=== PATIENT | male | born 1945 | race Two or more races ===

== ENCOUNTER 2018-02-21 18:15 | Emergency (ER) | payer OTHER, MEDICAID ==
[2018-02-21 18:48] LABS: ADD MAN DIFF? NO
[2018-02-21 18:52] LABS: BASO # 0.1 x10^3/uL (0.0-0.2); BASO % 1 % (0-3); EOS # 0.2 x10^3/uL (0.0-0.7); EOS % 2 % (0-3); HEMATOCRIT 36.5 % (39.0-53.0); HEMOGLOBIN 12.4 g/dL (13.0-17.5); LYMPH # 1.7 x10^3/uL (1.0-4.8); LYMPH % 16 % (24-48); MEAN CORPUSCULAR HEMOGLOBIN 30 pg (25-35); MEAN CORPUSCULAR HGB CONC 34 g/dL (31-37); MEAN CORPUSCULAR VOLUME 87 fL (79-100); MONO # 1.1 x10^3/uL (0.0-1.1); MONO % 11 % (0-9); NEUT # 7.4 x10^3uL (1.8-7.7); NEUT % 71 % (31-73); PLATELET COUNT 241 x10^3/uL (140-400); RED CELL DISTRIBUTION WIDTH 13.7 % (11.5-14.5); WHITE BLOOD COUNT 10.4 x10^3/uL (4.0-11.0)
[2018-02-21 18:58] LABS: ANION GAP 6 (6-14); BLOOD UREA NITROGEN 19 mg/dL (8-26); BUN/CREATININE RATIO 19 (6-20); CALCIUM 8.5 mg/dL (8.5-10.1); CARBON DIOXIDE 30 mmol/L (21-32); CHLORIDE 100 mmol/L (98-107); GFR 73.7; GLUCOSE 215 mg/dL (70-99); SODIUM 136 mmol/L (136-145)
[2018-02-21 18:59] LABS: C-REACTIVE PROTEIN 129.8 mg/L (0-3.3)
[2018-02-21 19:04] LABS: ALBUMIN/GLOBULIN RATIO 0.6 (1.0-1.7); ALK PHOS 107 U/L (46-116); ALT (SGPT) 15 U/L (16-63); AST (SGOT) 15 U/L (15-37); TOTAL BILIRUBIN 0.5 mg/dL (0.2-1.0); TOTAL PROTEIN 7.8 g/dL (6.4-8.2)
== END 2018-02-21 20:32 | disposition home or self-care (01) ==
LOC: ER 18:15
DX: E11.621 Type 2 diabetes mellitus with foot ulcer (principal); L97.511 Non-pressure chronic ulcer of other part of right foot limited to breakdown of skin
CPT/HCPCS: 36415; 73630; 80053; 85025; 86140; 87071; 87075; 87205; 99285-25

== ENCOUNTER → 2018-03-03 | Outpatient (CLI) | payer OTHER, MEDICAID | END | disposition home or self-care (01) | LOC: PMGWOUND 09:17 | DX: E11.621 Type 2 diabetes mellitus with foot ulcer (principal); L97.513 Non-pressure chronic ulcer of other part of right foot with necrosis of muscle | CPT/HCPCS: 11042; 87071; 87075; 87186 ==

== ENCOUNTER → 2018-03-04 | Outpatient (CLI) | payer OTHER, MEDICAID ==
[2018-03-04] MEDS: GADOBUTROL 7.5 MMOL/7.5 ML VIAL IV (13:32)
== END | disposition home or self-care (01) ==
LOC: KCIC MRI 12:34
DX: L97.513 Non-pressure chronic ulcer of other part of right foot with necrosis of muscle (principal); E11.621 Type 2 diabetes mellitus with foot ulcer; I11.0 Hypertensive heart disease with heart failure; I50.21 Acute systolic (congestive) heart failure
CPT/HCPCS: 73720; A9585

== ENCOUNTER → 2018-03-10 | Outpatient (CLI) | payer OTHER, MEDICAID | END | disposition home or self-care (01) | LOC: PMGWOUND 11:12 | DX: E11.621 Type 2 diabetes mellitus with foot ulcer (principal); L97.514 Non-pressure chronic ulcer of other part of right foot with necrosis of bone | CPT/HCPCS: 93923; 99214 ==

== ENCOUNTER → 2018-03-17 | Outpatient (CLI) | payer OTHER, MEDICAID | END | disposition home or self-care (01) | LOC: PMGWOUND 11:18 | DX: E11.621 Type 2 diabetes mellitus with foot ulcer (principal); L97.514 Non-pressure chronic ulcer of other part of right foot with necrosis of bone; I11.0 Hypertensive heart disease with heart failure; I50.21 Acute systolic (congestive) heart failure | CPT/HCPCS: 99215 ==

== ENCOUNTER → 2018-03-30 | Outpatient (CLI) | payer OTHER, MEDICAID | END | disposition home or self-care (01) | LOC: PMGWOUND 11:43 | DX: E11.621 Type 2 diabetes mellitus with foot ulcer (principal); L97.514 Non-pressure chronic ulcer of other part of right foot with necrosis of bone; I11.0 Hypertensive heart disease with heart failure; I50.21 Acute systolic (congestive) heart failure | CPT/HCPCS: 99214 ==

== ENCOUNTER → 2018-04-28 | Outpatient (CLI) | payer OTHER, MEDICAID ==
[2018-04-11 15:00] VITALS: BP 152/87
[~2018-04-28] MED LIST: DAPA5TAB PO; LEVO750T5 PO; METF10003 PO; MUPI15CR TP; TAMS0.4C2 PO
== END | disposition home or self-care (01) ==
LOC: PMGWOUND 11:34
PROVIDERS: ATTEND Preventive Medicine Undersea and Hyperbaric Medicine
DX: E11.621 Type 2 diabetes mellitus with foot ulcer (principal); L97.514 Non-pressure chronic ulcer of other part of right foot with necrosis of bone; I11.0 Hypertensive heart disease with heart failure; I50.21 Acute systolic (congestive) heart failure; E11.42 Type 2 diabetes mellitus with diabetic polyneuropathy; E11.51 Type 2 diabetes mellitus with diabetic peripheral angiopathy without gangrene; E11.69 Type 2 diabetes mellitus with other specified complication; M86.9 Osteomyelitis, unspecified; Z98.42 Cataract extraction status, left eye; Z98.41 Cataract extraction status, right eye; Z79.84 Long term (current) use of oral hypoglycemic drugs
CPT/HCPCS: 97597

== ENCOUNTER → 2018-05-05 | Outpatient (CLI) | payer OTHER, MEDICAID ==
[2018-04-11 15:00] VITALS: BP 152/87
[~2018-05-05] MED LIST changes: -METF10003 PO; +METF10007 PO
== END | disposition home or self-care (01) ==
LOC: PMGWOUND 09:49
PROVIDERS: ATTEND Emergency Medicine Undersea and Hyperbaric Medicine
DX: E11.621 Type 2 diabetes mellitus with foot ulcer (principal); L97.514 Non-pressure chronic ulcer of other part of right foot with necrosis of bone; I11.0 Hypertensive heart disease with heart failure; I50.21 Acute systolic (congestive) heart failure; E11.51 Type 2 diabetes mellitus with diabetic peripheral angiopathy without gangrene; E11.36 Type 2 diabetes mellitus with diabetic cataract; E11.42 Type 2 diabetes mellitus with diabetic polyneuropathy; M86.9 Osteomyelitis, unspecified; M86.071 Acute hematogenous osteomyelitis, right ankle and foot; Z79.84 Long term (current) use of oral hypoglycemic drugs
CPT/HCPCS: 99214; G0463